=== PATIENT | male | born 2000 | race Caucasian/White ===

== ENCOUNTER 2022-12-07 10:49 | Emergency (ER) | payer BC, SELFPAY ==
--- NOTE | 2022-12-07 11:06 | ED.NECK ---
HPI - Neck Pain/Injury General Chief Complaint: Neck Pain/Injury Stated Complaint: neck pain Related Data Allergies Allergy/AdvReac Type Severity Reaction Status Date / Time No Known Allergies Allergy Mild Verified 04/17/10 16:26 Discharge Plan Discharge Follow-up/Referrals: PHYSICIAN,APPLICATION PERFORMANCE ENGINEER [Primary Care Provider] -
[2022-12-07 11:10] VITALS: BP 130/63; PULSE 86; RESP 18; TEMP 37.2; O2SAT 99
--- NOTE | 2022-12-07 11:20 | ED.SKABFB ---
HPI - Skin/Abscess/Foreign Bdy General Chief complaint: Skin/Abscess/Foreign Body Stated complaint: neck pain Time Seen by Provider: 12/07/22 11:15 Source: patient and RN notes reviewed Mode of arrival: ambulatory Limitations: dementia History of Present Illness HPI narrative: 22-year-old male presents with concern for a red raised area on the left side of his neck. Reports his girlfriend noticed a bump a week or so ago but it was not red or tender within the last couple of days it has become red, swollen, tender. He denies drainage from the area. He denies general malaise, fever, aches, chills, sweats. MD complaint: other (Redness) Related Data Allergies Allergy/AdvReac Type Severity Reaction Status Date / Time No Known Allergies Allergy Mild Verified 12/07/22 11:12 Review of Systems Review of Systems: CONSTITUTIONAL: Denies malaise, chills, sweats, or fever. EYES: Denies redness, or discharge. ENT: Denies cold symptoms CARDIOVASCULAR: Denies chest pain, palpitations, or edema. RESPIRATORY: Denies cough or dyspnea. SKIN: Reports redness, swelling to the left side of the neck. Denies purulent drainage, vesicles, bullae, numbness, pain beyond proportion MUSCULOSKELETAL: Denies joint pain or myalgia. NEUROLOGIC: Denies headache. All systems reviewed & are unremarkable except as noted in HPI and below PMFSH Comments At time of signature, agree with nursing past medical, surgical, social and family history. There is no relevant family history pertinent to the presenting complaint Exam Narrative: GENERAL: Well-appearing, well-nourished, and in no acute distress. HEAD: Normocephalic, atraumatic. EYES: PERRLA, conjunctivae clear ENT: Mucous membranes moist. NECK: Supple. No lymphadenopathy CHEST: Clear to auscultation. No respiratory distress. HEART: Regular rate and rhythm. SKIN: Warm, dry. Approximately 1 cm palpable left flexion nodule beneath the skin with overlying erythema and tenderness, warmth with sharp margins noted to the left-sided of the neck. No vesicles, bullae, necrosis, ecchymosis, crepitus noted. NEURO: Alert and oriented x3. PSYCH: Normal mood and affect Course Course Emergency Course: Patient is aware of diagnosis, understands and agrees to treatment plan. Anticipatory guidance given. Patient agrees to follow-up as directed and is aware of reasons to seek care at the emergency department. Portions of this record may have been created with voice recognition software Level of Care: Express Care Visit Vital Signs Vital signs: Vital Signs Temperature 98.9 F 12/07/22 11:10 Pulse Rate 86 12/07/22 11:10 Respiratory Rate 18 12/07/22 11:10 Blood Pressure 130/63 12/07/22 11:10 Pulse Oximetry 99 12/07/22 11:10 Oxygen Delivery Room Air 12/07/22 11:10 Temperature 98.9 F 12/07/22 11:10 Pulse Rate 86 12/07/22 11:10 Respiratory Rate 18 12/07/22 11:10 Blood Pressure 130/63 12/07/22 11:10 Pulse Oximetry 99 12/07/22 11:10 Oxygen Delivery Room Air 12/07/22 11:10 Reviewed. MDM - Skin/Abscess/Foreign Bdy MDM Narrative Medical decision making narrative: Does not appear at this time to be erythema multiforme, bullous, SJS, TEN; no evidence at this time to suggest RMSF, NSTI, endocarditis or Lyme disease; patient looks well, nontoxic and is tolerating oral intake; no neurologic signs or symptoms; no headache, photophobia or neck pain; afebrile. Patient does not have history of of penetrating trauma, laceration, blunt trauma, recent surgery, immunosuppression, malignancy, obesity, alcoholism, corticosteroid use. Discussed the importance of follow-up, patient agrees; question, cellulitis versus necrotizing soft tissue infection versus abscess. Critical Care Time Critical Care Time Critical Care Time: No Discharge Plan Discharge Clinical Impression: Inflamed epidermoid cyst of skin Patient Disposition: Home, Self-Care Condition: Stable Instr
== END 2022-12-07 11:28 | disposition home or self-care (01) ==
PROVIDERS: Emergency Provider Nurse Practitioner
DX: L72.0 Epidermal cyst (principal)
CPT/HCPCS: 99213; G0463